=== PATIENT | female | born 1970 | race Caucasian/White ===

== ENCOUNTER 2017-03-04 08:31 | Day surgery (SDC) | payer MEDICARE, MEDICAID ==
[~2017-03-04] VITALS: Ht 167.6 cm; Wt 87.4 kg
[~2017-03-04 08:31] MED LIST: ADDERALL 20 MG20 MG PO; ARIPIPRAZOLE10 MG PO; DELTASONE5 MG PO; DRISDOL 5050000 UNIT PO; FLEXERIL10 MG PO; IRON65 PO; KLONOPIN0.5 M1 PO; LABETALOL HCL200 MG PO; MOVANTIK25 MG PO; NEXIUM40 MG PO; NOVOLOG100 UNIT/M SUB-Q; OXYCODONE HCL20 MG PO; OXYCONTIN EXTEN40 MG PO; PAXIL20 MG PO; PAXIL40 M1 PO; POTASSIUM99 MG PO; PREDNISONE10 MG PO; PRINIVIL (ZESTRI5 MG PO; PROGESTERONE TOP; PROVENTIL OR V6.7 GM INH; RANITIDINE HCL150 MG PO; SINGULAIR10 MG PO; THERA-VITE W/ B1 TAB PO; VITAMIN C1000 M2 PO; VITAMIN D-32000 UNI1 PO
[2017-03-04 09:39] LABS: ANION GAP 10.3 (10.0-19.0); BLOOD UREA NITROGEN 9 mg/dL (6-24); CALCIUM 8.8 mg/dL (8.5-10.5); CHLORIDE 101 mMol/L (96-110); CO2 32 mMol/L (22-32); CREATININE 0.6 mg/dL (0.5-1.1); ESTIMATED GFR (MDRD EQUATION) > 60; POTASSIUM 3.3 mMol/L (3.7-5.1); SODIUM 140 mMol/L (135-145)
== END 2017-03-04 15:15 | disposition disaster alternative care site (69) ==
LOC: GEND 08:31 → GSIP 08:31 → EDBD 15:00 → GPOC 15:00 → GEND 15:15
PROVIDERS: Internal Medicine Gastroenterology
PROC: 0F798DZ Dilation of Common Bile Duct with Intraluminal Device, Via Natural or Artificial Opening Endoscopic (ICD-10-PCS; principal; 2017-03-04)
PROC: 0F7D8DZ Dilation of Pancreatic Duct with Intraluminal Device, Via Natural or Artificial Opening Endoscopic (ICD-10-PCS; 2017-03-04)
DX: K80.20 Calculus of gallbladder without cholecystitis without obstruction (principal); I10 Essential (primary) hypertension; E11.9 Type 2 diabetes mellitus without complications; M79.7 Fibromyalgia; K21.9 Gastro-esophageal reflux disease without esophagitis; F17.210 Nicotine dependence, cigarettes, uncomplicated; Z90.49 Acquired absence of other specified parts of digestive tract; Z88.8 Allergy status to other drugs, medicaments and biological substances; Z88.6 Allergy status to analgesic agent; Z79.899 Other long term (current) drug therapy
CPT/HCPCS: C1769; J1720; J2405; J7030; J7120

== ENCOUNTER → 2017-04-01 | Day surgery (SDC) | payer MEDICARE, MEDICAID ==
[~2017-04-01] VITALS: Ht 167.6 cm; Wt 93.4 kg
== END | disposition disaster alternative care site (69) ==
LOC: GPOC 03-29 13:00 → GEND 07:00
PROC: 0DC68ZZ Extirpation of Matter from Stomach, Via Natural or Artificial Opening Endoscopic (ICD-10-PCS; principal; 2017-04-01)
DX: Z46.59 Encounter for fitting and adjustment of other gastrointestinal appliance and device (principal); K80.50 Calculus of bile duct without cholangitis or cholecystitis without obstruction; I10 Essential (primary) hypertension; E11.9 Type 2 diabetes mellitus without complications; F17.210 Nicotine dependence, cigarettes, uncomplicated; Z88.1 Allergy status to other antibiotic agents; Z88.5 Allergy status to narcotic agent; Z88.8 Allergy status to other drugs, medicaments and biological substances; Z79.52 Long term (current) use of systemic steroids; Z79.899 Other long term (current) drug therapy; Z98.890 Other specified postprocedural states
CPT/HCPCS: J7030